=== PATIENT | female | born 1995 | race African-American/Black ===

== ENCOUNTER → 2020-01-27 | Outpatient (CLI) | payer OTHER ==
--- NOTE | 2020-02-13 09:13 | REP ---
FOCUSED LEFT BREAST ULTRASOUND HISTORY: Left breast lump. Present since November. Stable in size. Similar to the size of a nickel, painless, at 12 o'clock position 2 cm above the superior areolar border. SONOGRAPHIC FINDINGS: Focused left breast sonography is performed through the area of the palpable lump at the 12 o'clock position. Heterogeneous fibroglandular background echotexture is seen. No mass is identified. No cyst is seen. No suspicious acoustic shadowing or architectural distortion is noted. IMPRESSION: BI-RADS Category 1 negative focused left breast sonographic findings. Clinical follow-up is advised. GARY
== END ==
LOC: M WHC 08:27
PROVIDERS: ATTEND Physician Assistant
DX: N63.20 Unspecified lump in the left breast, unspecified quadrant (principal)

== ENCOUNTER → 2020-05-05 | Outpatient (CLI) | payer SELFPAY | LOC: M LABSMTC 13:00 | PROVIDERS: ATTEND Pediatrics | DX: Z20.828 Contact with and (suspected) exposure to other viral communicable diseases (principal) ==

== ENCOUNTER 2020-07-05 21:07 | Emergency (ER) | payer OTHER ==
[~2020-07-05] VITALS: Ht 152.4 cm; Wt 53.2 kg
[2020-07-05] MEDS ORDERED: IBUP-1022 PO (22:11)
--- OUTSIDE RECORDS SUMMARY | 2020-07-05 22:21 | CCD ---
Author Author [facility] Organization [facility] Address Unknown Phone Unavailable Support Name Relationship Address Phone [facility] Next Of Kin [address] [place] [address] Unavailable Re-disclosure Warning The records that you are about to access may contain information from federally-assisted alcohol or drug abuse programs. If such information is present, then the following federally mandated warning applies: This information has been disclosed to you from records protected by federal confidentiality rules (42 CFR part 2). The federal rules prohibit you from making any further disclosure of this information unless further disclosure is expressly permitted by the written consent of the person to whom it pertains or as otherwise permitted by 42 CFR part 2. A general authorization for the release of medical or other information is NOT sufficient for this purpose. The Federal rules restrict any use of the information to criminally investigate or prosecute any alcohol or drug abuse patient.The records that you are about to access may contain highly sensitive health information, the redisclosure of which is protected by Article 27-F of the [facility] Public Health law. If you continue you may have access to information: Regarding HIV / AIDS; Provided by facilities licensed or operated by the [facility] Office of Mental Health; or Provided by the [facility] Office for People With Developmental Disabilities. If such information is present, then the following [facility] mandated warning applies: This information has been disclosed to you from confidential records which are protected by state law. State law prohibits you from making any further disclosure of this information without the specific written consent of the person to whom it pertains, or as otherwise permitted by law. Any unauthorized further disclosure in violation of state law may result in a fine or assisted sentence or both. A general authorization for the release of medical or other information is NOT sufficient authorization for further disc losure. Insurance Providers Payer name Policy type / Coverage type Policy ID Covered constitution party ID Covered constitution party's relationship to verma Policy Verma Plan Information [employer] [id number] SELF PAY ONLY [id number] SP [id number] [employer] [facility] REG O [id number] S [id number] [facility] ACTIVE DUTY [id number] SP [id number] Results ID Date Data Source [id number] 05/05/2020 12:00:00 AM EST [facility] Name Value Range Interpretation Code Description Data Jo-Ann rce(s) Supporting Document(s) SARS-CoV-2 (COVID-19) RNA [Presence] in Respiratory specimen by [facility] with probe detection [facility] This lab was ordered by [facility] and reported by [employer] Procedure
[2020-07-05 22:23] VITALS: BP 119/88
== END 2020-07-05 22:35 | disposition home or self-care (01) ==
LOC: M ED 21:07
DX: T33.531A Superficial frostbite of right finger(s), initial encounter (principal); Y92.9 Unspecified place or not applicable; Y93.01 Activity, walking, marching and hiking